=== PATIENT | female | born 1965 | race Caucasian/White ===

== ENCOUNTER 2024-03-12 11:54 | Emergency (ER) | payer OTHER ==
[~2024-03-12] VITALS: Ht 162.6 cm; Wt 72.6 kg
[2024-03-12 13:27] VITALS: BP 129/75; TEMP 98; O2SAT 100
== END 2024-03-12 13:00 | disposition home or self-care (01) ==
LOC: ER 12:02
DX: H57.89 Other specified disorders of eye and adnexa (principal); E78.5 Hyperlipidemia, unspecified; E03.9 Hypothyroidism, unspecified
CPT/HCPCS: A4606; A4663

== ENCOUNTER 2024-06-24 19:45 | Emergency (ER) | payer OTHER ==
[~2024-06-24] VITALS: Ht 162.6 cm; Wt 68.0 kg
[2024-06-24] MEDS ORDERED: ACETAMINOPHEN 500 MG TABLET ONE (20:58)
[2024-06-24] MEDS: ACETAMINOPHEN 500 MG TABLET PO ONE (21:00)
[2024-06-24] MEDS ORDERED: PROCHLORPERAZINE EDISYLATE 10 MG/2 ML VIAL IM ONE (22:15)
[2024-06-24] MEDS ORDERED: KETOROLAC TROMETHAMINE 30 MG INJ IM ONE (22:15)
[2024-06-24 22:17] VITALS: BP 103/67; TEMP 97.3; O2SAT 97
== END 2024-06-24 22:17 | disposition home or self-care (01) ==
LOC: ER 19:51
DX: R51.9 Headache, unspecified (principal); E03.9 Hypothyroidism, unspecified; E78.5 Hyperlipidemia, unspecified
CPT/HCPCS: 70450; A4606; A4663; A9150

== ENCOUNTER 2025-05-25 13:57 | Emergency (ER) | payer OTHER ==
[~2025-05-25] VITALS: Ht 162.6 cm; Wt 68.0 kg
[2025-05-25 14:17] VITALS: BP 117/79
[2025-05-25] MEDS ORDERED: OXYCODONE/APAP 5-325 MG TABLET ONE (16:35)
[2025-05-25] MEDS: OXYCODONE/APAP 5-325 MG TABLET PO ONE (16:38)
[2025-05-25] MEDS ORDERED: OXYM15MI4 NS (16:44)
[2025-05-25] MEDS ORDERED: OXYC-128 PO (16:44)
[2025-05-25] MEDS ORDERED: PRED20TA PO (16:44)
[2025-05-25] MEDS ORDERED: AMOX250S68 PO (16:44)
[2025-05-25] MEDS ORDERED: PSEU-249 PO (16:44)
[2025-05-25] MEDS ORDERED: AMOX400S5 PO (16:44)
[2025-05-25 17:50] VITALS: BP 117/79; TEMP 98; O2SAT 99
== END 2025-05-25 16:55 | disposition home or self-care (01) ==
LOC: ER 13:57
DX: J32.9 Chronic sinusitis, unspecified (principal); E78.5 Hyperlipidemia, unspecified; H92.03 Otalgia, bilateral; R07.0 Pain in throat; R50.9 Fever, unspecified; Z79.52 Long term (current) use of systemic steroids
CPT/HCPCS: A4606; A4663